=== PATIENT | female | born 1960 | race Caucasian/White ===

== ENCOUNTER 2018-11-15 11:12 | Emergency (ER) | payer BC ==
[2018-11-15] MEDS ORDERED: Sodium Chloride 0.9% 10 ML Syringe FLUSH PRN (11:23)
[2018-11-15] MEDS ORDERED: Sodium Chloride 0.9% 1,000 ML IV SCH (11:30)
[2018-11-15] MEDS ORDERED: LORazepam 2 MG/ML SDV IVPUSH ONE (12:19)
--- NOTE | 2018-11-15 12:31 | CR ---
[id number] RAD/RAD Chest PA And Lateral EXAM: FRONTAL AND LATERAL CHEST INDICATION: Chest pain. COMPARISON: None. DISCUSSION: There is mild cardiomegaly with borderline central vascular congestion. Hyperinflation suggests chronic obstructive pulmonary disease. No acute infiltrates are identified. IMPRESSION: 1. Mild cardiomegaly with borderline central vascular congestion. Niko Osborn MD 11/15/18 [id number] Thank you for allowing us to participate in the care of your patient.
--- NOTE | 2018-11-15 12:32 | CR ---
[id number] RAD/RAD Cervical Spine 2-3V EXAM: CERVICAL SPINE 3 VIEWS INDICATION: NECK PAIN. COMPARISON: None. DISCUSSION: Straightening the cervical lordosis. Minor spondylolisthesis C2-C3 and C7-T1. The prevertebral soft tissues are normal in thickness. Advanced degenerative disc disease C4-C5 with moderate changes at C3-C4, C5-C6, C6-C7 and C7-T1. Moderate facet arthropathy throughout the cervical spine. IMPRESSION: 1. Moderate cervical spondylosis. Niko Osborn MD 11/15/18 1309 Thank you for allowing us to participate in the care of your patient.
[2018-11-15 12:36] LABS: CHLORIDE,CL 104 mmol/L (98-107); SODIUM,NA 140 mmol/L (136-145)
--- NOTE | 2018-11-15 13:16 | EDM.PDOC ---
ED HPI GENERAL MEDICAL PROBLEM - General Chief Complaint: Cardiovascular Problem Stated Complaint: CHEST PRESSURE Time Seen by Provider: 11/15/18 11:21 Source of Information: Reports: Patient History Limitations: Reports: No Limitations - History of Present Illness INITIAL COMMENTS - FREE TEXT/NARRATIVE: Patient reports left sided chest and back pain with arm numbness/tingling. History of cervical disc problems. 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 She has no new shortness of breath, no headaches, no abdominal pain or urinary symptoms. Denies any blood to urine or stools. Patient states this pain started a couple of days ago and has progressively worsened. Afebrile. Worsens with breathing and is reproducible. Onset: Gradual Duration: Getting Worse Location: Reports: Chest, Back Quality: Reports: Sharp Severity: Moderate Worsens with: Reports: Breathing, Movement Associated Symptoms: Reports: Chest Pain ED ROS GENERAL - Review of Systems Review Of Systems: See Below Constitutional: Reports: No Symptoms HEENT: Reports: No Symptoms Respiratory: Reports: No Symptoms Cardiovascular: Reports: Chest Pain Endocrine: Reports: No Symptoms GI/Abdominal: Reports: No Symptoms : Reports: No Symptoms Musculoskeletal: Reports: Neck Pain, Shoulder Pain, Arm Pain, Back Pain Skin: Reports: No Symptoms Neurological: Reports: No Symptoms Psychiatric: Reports: No Symptoms Hematologic/Lymphatic: Reports: No Symptoms Immunologic: Reports: No Symptoms ED EXAM, GENERAL - Physical Exam Exam: See Below Exam Limited By: No Limitations General Appearance: Alert, WD/WN, Mild Distress Eye Exam: Bilateral Eye: EOMI, Normal Inspection, PERRL Ears: Normal TMs Nose: Normal Inspection, Normal Mucosa, No Blood Throat/Mouth: Normal Inspection, Normal Lips, Normal Teeth, Normal Gums, Normal Oropharynx, Normal Voice, No Airway Compromise Head: Atraumatic, Normocephalic Neck: Normal Inspection, Supple, Non-Tender, Full Range of Motion Respiratory/Chest: No Respiratory Distress, Lungs Clear, Normal Breath Sounds, No Accessory Muscle Use, Chest Non-Tender Cardiovascular: No Murmur, Irregularly Irregular Peripheral Pulses: 2+: Posterior Tibial (L), Posterior Tibial (R), Dorsalis Pedis (L), Dorsalis Pedis (R) GI/Abdominal: Normal Bowel Sounds, Soft, Non-Tender, No Organomegaly, No Distention, No Abnormal Bruit, No Mass Back Exam: Normal Inspection, Full Range of Motion, NT Extremities: Normal Inspection, Normal Range of Motion, Non-Tender, Normal Capillary Refill, No Pedal Edema Neurological: Alert, Oriented, CN II-XII Intact, Normal Cognition, Normal Gait, Normal Reflexes, No Motor/Sensory Deficits Psychiatric: Normal Affect, Normal Mood Skin Exam: Warm, Dry, Intact, Normal Color, No Rash Lymphatic: No Adenopathy Course - Orders/Labs/Meds Orders: Active Orders 24 hr Category Date Time Status EKG Documentation Completion [RC] STAT Care 11/15/18 11:23 Ordered Cervical Spine 2V or 3V [CR] Stat Exams 11/15/18 11:23 Ordered Chest 2V [CR] Stat Exams 11/15/18 11:23 Taken C-REACTIVE PROTEIN [CHEM] Stat Lab 11/15/18 11:23 Ordered CBC WITH AUTO DIFF [HEME] Stat Lab 11/15/18 11:23 Ordered COMPREHENSIVE METABOLIC PN,CMP [CHEM] Stat Lab 11/15/18 11:23 Ordered INR,PT,PROTHROMBIN TIME [COAG] Stat Lab 11/15/18 11:23 Ordered MAGNESIUM [CHEM] Stat Lab 11/15/18 11:23 Ordered PRO B-TYPE NATRIUR PEPT,BNPPRO [CHEM] Stat Lab 11/15/18 11:25 Ordered TROPONIN I [CHEM] Stat Lab 11/15/18 11:23 Ordered TSH ULTRASENSITIVE [CHEM] Stat Lab 11/15/18 11:25 Ordered Sodium Chloride 0.9% [Normal Saline] 1,000 ml Med 11/15/18 11:30 Ordered IV ASDIRECTED Sodium Chloride 0.9% [Saline Flush] Med 11/15/18 11:23 Ordered 10 ml FLUSH ASDIRECTED PRN Saline Lock Insert [OM.PC] Routine Oth 11/15/18 11:23 Ordered Medication Orders Sodium Chloride (Normal Saline) 1,000 mls @ 999 mls/hr IV ASDIRECTED TINO Sodium Chloride (Saline Flush) 10 ml FLUSH ASDIRECTED PRN PRN Reason: Keep Vein Open Meds: Medications Generic Name Dose Route Start Last Admin Trade Name Freq PRN Reason Stop Dose Admin Sodium Chloride 1,000 mls @ 999 mls/hr 11/15/18 11:30 Normal Saline IV ASDIRECTED TINO Sodium Chloride 10 ml 11/15/18 11:23 Saline Flush FLUSH ASDIRECTED PRN Keep Vein Open Departure - Departure Time of Disposition: 13:22 Disposition: Home, Self-Care 01 Condition: Good Clinical Impression: Cervical spondylosis Instructions: Spondylolysis Referrals: Tommie Gore MD [Primary Care Provider] - Forms: ED Department Discharge Additional Instructions: Plan 1. No work until Wednesday. Rest your neck and arm. Alternate ice and heat therapy. Take medications as directed. 2. Make follow up appointment this week with Jose Kaur for MRI of the neck. At some point you may need to visit with spinal surgeons for repair 3. Please call us if you have any additional questions or concerns. 4. All labs and diagnostic tests today were negative for acute heart attack or stroke. - Problem List & Annotations (1) Cervical spondylosis SNOMED Code(s): 676727588 Code(s): M47.812 - SPONDYLOSIS W/O MYELOPATHY OR RADICULOPATHY, CERVICAL REGION Status: Acute Priority: Medium Current Visit: Yes - Problem List Review Problem List Initiated/Reviewed/Updated: Yes - My Orders Last 24 Hours: My Active Orders 11/15/18 11:23 EKG Documentation Completion [RC] STAT Cervical Spine 2V or 3V [CR] Stat Chest 2V [CR] Stat C-REACTIVE PROTEIN [CHEM] Stat CBC WITH AUTO DIFF [HEME] Stat COMPREHENSIVE METABOLIC PN,CMP [CHEM] Stat INR,PT,PROTHROMBIN TIME [COAG] Stat MAGNESIUM [CHEM] Stat TROPONIN I [CHEM] Stat Sodium Chloride 0.9% [Saline Flush] 10 ml FLUSH ASDIRECTED PRN Saline Lock Insert [OM.PC] Routine 11/15/18 11:25 PRO B-TYPE NATRIUR PEPT,BNPPRO [CHEM] Stat TSH ULTRASENSITIVE [CHEM] Stat 11/15/18 11:30 Sodium Chloride 0.9% [Normal Saline] 1,000 ml IV ASDIRECTED - Assessment/Plan Last 24 Hours: My Active Orders 11/15/18 11:23 EKG Documentation Completion [RC] STAT Cervical Spine 2V or 3V [CR] Stat Chest 2V [CR] Stat C-REACTIVE PROTEIN [CHEM] Stat CBC WITH AUTO DIFF [HEME] Stat COMPREHENSIVE METABOLIC PN,CMP [CHEM] Stat INR,PT,PROTHROMBIN TIME [COAG] Stat MAGNESIUM [CHEM] Stat TROPONIN I [CHEM] Stat Sodium Chloride 0.9% [Saline Flush] 10 ml FLUSH ASDIRECTED PRN Saline Lock Insert [OM.PC] Routine 11/15/18 11:25 PRO B-TYPE NATRIUR PEPT,BNPPRO [CHEM] Stat TSH ULTRASENSITIVE [CHEM] Stat 11/15/18 11:30 Sodium Chloride 0.9% [Normal Saline] 1,000 ml IV ASDIRECTED Assessment:: cervical spondylosis Plan: Plan 1. No work until Wednesday. Rest your neck and arm. Alternate ice and heat therapy. Take medications as directed. 2. Make follow up appointment this week with Jose Kaur for MRI of the neck. At some point you may need to visit with spinal surgeons for repair 3. Please call us if you have any additional questions or concerns. 4. All labs and diagnostic tests today were negative for acute heart attack or stroke.
== END 2018-11-15 13:35 | disposition home or self-care (01) ==
LOC: VM.ED 11:12
DX: M47.812 Spondylosis without myelopathy or radiculopathy, cervical region (principal)
CPT/HCPCS: 71046; 72040; 80053; 83735; 83880; 84443; 84484; 85025; 85610; 86140; 93005; 96361; 96374; 99285; J2060; J7030

== ENCOUNTER 2020-03-02 14:48 | Emergency (ER) | payer BC ==
[2020-03-02] MEDS ORDERED: Sodium Chloride 0.9% 10 ML Syringe FLUSH PRN (15:03)
--- NOTE | 2020-03-02 15:10 | EDM.PDOC ---
ED HPI GENERAL MEDICAL PROBLEM - General Chief Complaint: General Stated Complaint: NAUSEA,VOMITING Time Seen by Provider: 03/02/20 14:48 Source of Information: Reports: Patient History Limitations: Reports: No Limitations - History of Present Illness INITIAL COMMENTS - FREE TEXT/NARRATIVE: Patient comes in the emergency department with complaint of generalized weakness and nausea. Patient states that it started abruptly/suddenly earlier this morning. She states that she has an overall body weakness, body aches, sore throat, fatigue, decrease in energy, and severe nausea. Patient states she is been relatively healthy prior than today. She has recently traveled to [facility] approximately 2 weeks ago. Prior to that she had a COVID-19 test on February 09 prior to leaving. At that time frame it was negative. Patient states that she has not had any fever, cough, congestion, abdominal pain, chest pain, shortness of breath, sore throat, loss of taste or smell prior to today. She states all of her symptoms this morning were abrupt onset. She describes them as like being hit by a bus. Patient states that she has been taking zinc and vitamin C at home to help boost her immune system for [id number] modalities prior to arrival. Patient denies taking any other medications to help with her symptoms.She denies any factors that make her symptoms worse or better currently. Onset: Sudden Quality: Reports: Other Severity: Moderate Improves with: Reports: None Worsens with: Reports: None Associated Symptoms: Reports: No Other Symptoms - Related Data Allergies Allergy/AdvReac Type Severity Reaction Status Date / Time Penicillins Allergy Rash Verified 11/15/18 21:07 vancomycin Allergy Rash Verified 11/15/18 21:07 morphine AdvReac Irritabilit Verified 09/12/19 09:34 y Home Meds: Home Meds . [No Known Home Meds] 11/15/18 [History] ED ROS GENERAL - Review of Systems Review Of Systems: See Below Constitutional: Reports: Malaise, Weakness, Fatigue, Decreased Appetite HEENT: Reports: No Symptoms Respiratory: Reports: No Symptoms Cardiovascular: Reports: No Symptoms Endocrine: Reports: No Symptoms GI/Abdominal: Reports: Nausea : Reports: No Symptoms Musculoskeletal: Reports: No Symptoms Skin: Reports: No Symptoms Neurological: Reports: No Symptoms Psychiatric: Reports: No Symptoms Hematologic/Lymphatic: Reports: No Symptoms Immunologic: Reports: No Symptoms ED EXAM, GENERAL - Physical Exam Exam: See Below Exam Limited By: No Limitations General Appearance: Alert, WD/WN, No Apparent Distress Eye Exam: Bilateral Eye: PERRL Ears: Normal External Exam, Normal Canal, Hearing Grossly Normal Nose: Normal Inspection, Normal Mucosa, No Blood Throat/Mouth: Normal Inspection, Normal Lips, No Airway Compromise Head: Atraumatic, Normocephalic Respiratory/Chest: No Respiratory Distress, Lungs Clear, Normal Breath Sounds, Chest Non-Tender Cardiovascular: Normal Peripheral Pulses, Regular Rate, Rhythm, No Edema GI/Abdominal: Normal Bowel Sounds, Soft Back Exam: Normal Inspection, Full Range of Motion Extremities: Normal Inspection, Normal Range of Motion, Non-Tender Neurological: Alert, Oriented, CN II-XII Intact, Normal Cognition, Normal Gait Psychiatric: Normal Affect, Normal Mood Skin Exam: Warm, Dry, Intact, Normal Color Course - Orders/Labs/Meds Orders: Active Orders 24 hr Category Date Time Status EKG Documentation Completion [RC] STAT Care 03/02/20 15:03 Active Sodium Chloride 0.9% [Saline Flush] Med 03/02/20 15:03 Active 10 ml FLUSH ASDIRECTED PRN Peripheral IV Insertion Adult [OM.PC] Stat Oth 03/02/20 15:03 Ordered Medication Orders Sodium Chloride (Saline Flush) 10 ml FLUSH ASDIRECTED PRN PRN Reason: Keep Vein Open Labs: Laboratory Tests 03/02/20 03/02/20 03/02/20 Range/Units 15:04 15:36 15:36 WBC 9.4 (4.0-10.0) x10^3/uL RBC 4.16 (4.00-5.50) x10^6/uL Hgb 12.2 D (12.0-16.0) g/dL Hct 35.9 (33.0-47.0) % MCV 86.3 (78.0-93.0) fL MCH 29.3 (26.0-32.0) pg MCHC 34.0 (32.0-36.0) g/dL RDW Coeff of Kailyn 12.1 (10.0-15.0) % Plt Count 279 (130-400) x10^3/uL Neut % (Auto) 71.0 (50.0-80.0) % Lymph % (Auto) 20.8 L (25.0-50.0) % Storey % (Auto) 6.5 (2.0-11.0) % Eos % (Auto) 1.4 (0.0-4.0) % Baso % (Auto) 0.3 (0.2-1.2) % PT 10.8 (9.5-12.3) SEC INR 1.0 L (2.0-3.5) D-Dimer, Quantitative (<=0.58) mg/LFEU Sodium (136-145) mmol/L Potassium (3.5-5.1) mmol/L Chloride (98-107) mmol/L Carbon Dioxide (21-32) mmol/L Anion Gap (10-20) mmol/L BUN (7-18) mg/dL Creatinine (0.55-1.02) mg/dL Est Cr Clr Drug Dosing Estimated GFR (MDRD) Glucose (74-106) mg/dL Lactic Acid (0.4-2.0) mmol/L Calcium (8.5-10.1) mg/dL Corrected Calcium (8.5-10.1) mg/dL Total Bilirubin (0.2-1.0) mg/dL AST (15-37) U/L ALT (14-59) U/L Alkaline Phosphatase (46-116) U/L Troponin I (<=0.056) ng/mL Total Protein (6.4-8.2) g/dL Albumin (3.4-5.0) g/dL Globulin Albumin/Globulin Ratio SARS CoV-2 RNA Rapid CHINO Negative (NEGATIVE) 03/02/20 03/02/20 03/02/20 Range/Units 15:36 15:36 15:36 WBC (4.0-10.0) x10^3/uL RBC (4.00-5.50) x10^6/uL Hgb (12.0-16.0) g/dL Hct (33.0-47.0) % MCV (78.0-93.0) fL MCH (26.0-32.0) pg MCHC (32.0-36.0) g/dL RDW Coeff of Kailyn (10.0-15.0) % Plt Count (130-400) x10^3/uL Neut % (Auto) (50.0-80.0) % Lymph % (Auto) (25.0-50.0) % Storey % (Auto) (2.0-11.0) % Eos % (Auto) (0.0-4.0) % Baso % (Auto) (0.2-1.2) % PT (9.5-12.3) SEC INR (2.0-3.5) D-Dimer, Quantitative 0.64 H (<=0.58) mg/LFEU Sodium 139 (136-145) mmol/L Potassium 3.7 (3.5-5.1) mmol/L Chloride 105 (98-107) mmol/L Carbon Dioxide 21 (21-32) mmol/L Anion Gap 16.7 (10-20) mmol/L BUN 16 (7-18) mg/dL Creatinine 0.9 (0.55-1.02) mg/dL Est Cr Clr Drug Dosing TNP Estimated GFR (MDRD) > 60 Glucose 127 H (74-106) mg/dL Lactic Acid 2.3 H* (0.4-2.0) mmol/L Calcium 8.2 L (8.5-10.1) mg/dL Corrected Calcium 8.60 (8.5-10.1) mg/dL Total Bilirubin 0.4 (0.2-1.0) mg/dL AST 19 (15-37) U/L ALT 26 (14-59) U/L Alkaline Phosphatase 97 (46-116) U/L Troponin I < 0.017 (<=0.056) ng/mL Total Protein 6.7 (6.4-8.2) g/dL Albumin 3.5 (3.4-5.0) g/dL Globulin 3.2 Albumin/Globulin Ratio 1.09 SARS CoV-2 RNA Rapid CHINO (NEGATIVE) Meds: Medications Generic Name Dose Route Start Last Admin Trade Name Freq PRN Reason Stop Dose Admin Sodium Chloride 10 ml 03/02/20 15:03 Saline Flush FLUSH ASDIRECTED PRN Keep Vein Open Discontinued Medications Generic Name Dose Route Start Last Admin Trade Name Freq PRN Reason Stop Dose Admin Hydroxyzine HCl 25 mg 03/02/20 16:37 03/02/20 17:20 Vistaril IM 03/02/20 16:38 25 mg ONETIME ONE Administration Iopamidol 100 ml 03/02/20 18:06 03/02/20 18:06 Isovue-300 (61%) IVPUSH 03/02/20 18:07 100 ml ONETIME ONE Administration Ondansetron HCl 4 mg 03/02/20 17:21 Zofran IVPUSH 03/02/20 17:22 ONETIME ONE - Re-Assessments/Exams Free Text/Narrative Re-Assessment/Exam: States he feels much better regarding her symptoms. She states that she does believe that she did have a panic attack which she does have a history of. Patient is also dissatisfied with the care for she states that she did not have a call light for an extended period time and she was cold. Did explain to the patient and apologize for any delays that she felt had occurred. Patient felt more relaxed and relieved after explanation. We will continue with scheduling a CT of her chest for further evaluation to Rule out a PE. 03/02/20 17:23 Free Text/Narrative Re-Assessment/Exam: Limited a tray to the patient since she has not eaten all day. Patient also disclosed that she has actually been positive for Covid 19. She was tested positive back in January 19, 2020. And then tested negative on February 09 prior to flying to [place]. 03/02/20 17:27 Free Text/Narrative Re-Assessment/Exam: Patient states she feels back to her baseline she has no other concerns or complaints. She states that the hydroxyzine and the fluids helped her she no longer feels weak. 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 Patient does not feel she needs anything further care this evening and would like to be discharged home. 03/02/20 19:11 Departure - Departure Time of Disposition: 19:10 Disposition: Home, Self-Care 01 Condition: Good Clinical Impression: Anxiety, SOB (shortness of breath) Fatigue Qualifiers: Fatigue type: other Qualified Code(s): R53.83 - Other fatigue - Discharge Information *PRESCRIPTION DRUG MONITORING PROGRAM REVIEWED*: Not Applicable *COPY OF PRESCRIPTION DRUG MONITORING REPORT IN PATIENT [facility]: Not Applicable Instructions: Shortness of Breath, Adult, [id number], Fatigue, Managing Anxiety, Adult Referrals: Jose Kaur PA-C [Primary Care Provider] - Forms: ED Department Discharge Additional Instructions: 1. rest 2. increase your water intake 3. Continue all at home medications 4. Activity and diet as tolerated 5. Can take over the counter Tylenol for any pain or discomfort 6. Follow up with PCP if symptoms continue, return, or progress 7. Call with any questions or concerns - My Orders Last 24 Hours: My Active Orders 03/02/20 15:03 EKG Documentation Completion [RC] STAT Sodium Chloride 0.9% [Saline Flush] 10 ml FLUSH ASDIRECTED PRN Peripheral IV Insertion Adult [OM.PC] Stat - Assessment/Plan Last 24 Hours: My Active Orders 03/02/20 15:03 EKG Documentation Completion [RC] STAT Sodium Chloride 0.9% [Saline Flush] 10 ml FLUSH ASDIRECTED PRN Peripheral IV Insertion Adult [OM.PC] Stat Assessment:: 1. fatigue 2. weakness 3. Anxiety attack Plan: 1. Labs completed in the ER. Results reviewed with the patient 2. chest xray completed in the ER. Results reviewed with the patient 3. IV initiated in the emergency department 4. IV fluids provided 5. Covid-19 completed- 6. Influenza swab completed- 7. EKG completed in the ER. Results reviewed with the patient 8. Zofran given in the ER to help with nausea 9. CTA chest to rule out PE 10. [id number]- asked radiology staff to contact to update status of reading CT exam 11. Patient and nursing staff was updated regarding the plan of care 12. Patient and family are agreeable to the above plan of care 13. All questions and concerns were addressed with the patient and family prior to discharge
--- NOTE | 2020-03-02 15:59 | CR ---
[id number] RAD/RAD Chest PA or AP 1V EXAM: RAD Chest PA or AP 1V INDICATION: SHORTNESS OF BREATH. COMPARISON: None. DISCUSSION: Cardiomediastinal silhouette is normal in size and contour. No infiltrate, effusion, pneumothorax, or edema. IMPRESSION: No acute cardiopulmonary abnormality. Didier Gabriel DO 03/02/20 1558 Thank you for allowing us to participate in the care of your patient.
[2020-03-02 16:18] LABS: CHLORIDE,CL 105 mmol/L (98-107); SODIUM,NA 139 mmol/L (136-145)
[2020-03-02 16:19] LABS: ANION GAP 16.7 mmol/L (10-20)
[2020-03-02] MEDS ORDERED: hydrOXYzine HCl 50 MG/ML SDV IM ONE (16:37)
[2020-03-02] MEDS ORDERED: Ondansetron 4 MG/2 ML SDV IVPUSH ONE (17:21)
[2020-03-02] MEDS ORDERED: Iopamidol 612 MG/ML 100 ML Bottle IVPUSH ONE (18:06)
--- NOTE | 2020-03-02 19:01 | CT ---
[id number] CT/CTA Chest EXAM: CT ANGIOGRAM CHEST INDICATION: ELEVATED D DIMER SOB COMPARISON: None. DISCUSSION: The pulmonary arteries are normal in appearance with no emboli identified. There is artifact within the main pulmonary artery related to motion. The lungs are clear with no nodule, infiltrate or mass identified.No pleural or pericardial effusion. Normal heart size. Multiple calcified mediastinal and hilar lymph nodes consistent with prior granulomatous disease. The imaged upper abdomen and osseous structures are unremarkable. IMPRESSION: 1. No evidence of acute pulmonary embolism Didier Gabriel DO 03/02/20 1960 Thank you for allowing us to participate in the care of your patient.
--- NOTE | 2020-03-02 19:06 | CR ---
[id number] RAD/RAD Ankle Left 3V Min EXAM: 3 VIEWS LEFT ANKLE. INDICATION: PAIN COMPARISON: None. DISCUSSION: No fracture, dislocation or other acute osseous abnormality. Small left ankle joint effusion. The ankle mortise is maintained. IMPRESSION: 1. No acute osseous abnormalities. Didier Gabriel DO 03/02/20 1906 Thank you for allowing us to participate in the care of your patient.
[2020-03-02] MEDS ORDERED: Sodium Chloride 0.9% 1,000 ML IV ONE (19:45)
== END 2020-03-02 19:14 | disposition home or self-care (01) ==
LOC: VM.ED 14:48
DX: F41.9 Anxiety disorder, unspecified (principal); R06.02 Shortness of breath; Z20.828 Contact with and (suspected) exposure to other viral communicable diseases; Z88.0 Allergy status to penicillin; Z88.1 Allergy status to other antibiotic agents; Z88.5 Allergy status to narcotic agent
CPT/HCPCS: 36415; 71045; 71275; 73610; 80053; 83605; 84484; 85025; 85379; 85610; 87635; 87804; 93005; 96372; 96374; 99284; 99285; J2405; J3410; J7030; Q9967; U0002

== ENCOUNTER 2024-09-16 07:47 | Emergency (ER) | payer BC | END 2024-09-16 08:18 | disposition home or self-care (01) | LOC: VM.ED 07:47 | DX: H10.31 Unspecified acute conjunctivitis, right eye (principal); Z88.0 Allergy status to penicillin; Z88.1 Allergy status to other antibiotic agents; Z88.5 Allergy status to narcotic agent; Z88.8 Allergy status to other drugs, medicaments and biological substances | CPT/HCPCS: 99283 ==

== ENCOUNTER 2024-10-18 16:28 | Emergency (ER) | payer OTHER, BC ==
[2024-10-18] MEDS: Take Home: Acetaminophen/HYDROcodone 325-5 MG, 5 Tab Pack PO ONE (17:20)
== END 2024-10-18 17:25 | disposition home or self-care (01) ==
LOC: VM.ED 16:28
DX: M25.511 Pain in right shoulder (principal); Z88.0 Allergy status to penicillin; Z88.5 Allergy status to narcotic agent
CPT/HCPCS: 73030-RT; 99283; A9270-GY